=== PATIENT | male | born 1975 | race Asian ===

== ENCOUNTER 2023-08-15 01:56 | Emergency (ER) | payer OTHER ==
[~2023-08-15] VITALS: Ht 182.9 cm; Wt 100.0 kg
[2023-08-15 02:21] VITALS: TEMP 98.1
[2023-08-15] MEDS: PERTUSS(ACELL),DIPH,TET/PF 0.5 ML SYRINGE [ADULT] IM. ONE (03:21)
[2023-08-15] MEDS: LIDOCAINE 1% 10 ML VIAL SQ ONE (03:21)
[2023-08-15 05:00] VITALS: BP 149/95; PULSE 92; RESP 17
== END 2023-08-15 06:09 | disposition home or self-care (01) ==
LOC: EMS 01:58
DX: S01.01XA Laceration without foreign body of scalp, initial encounter (principal); F10.129 Alcohol abuse with intoxication, unspecified; I10 Essential (primary) hypertension; Z88.0 Allergy status to penicillin; W22.8XXA Striking against or struck by other objects, initial encounter; Y93.89 Activity, other specified; Y92.89 Other specified places as the place of occurrence of the external cause; Y99.8 Other external cause status; Y90.6 Blood alcohol level of 120-199 mg/100 ml
CPT/HCPCS: 99283; 36415; 90715; 90471; 12002; G0480; J3490; 12013